=== PATIENT | female | born 1950 | race Caucasian/White ===

== ENCOUNTER 2025-06-24 22:40 | Emergency (ER) | payer MEDICARE, OTHER ==
[~2025-06-24] VITALS: Ht 162.6 cm; Wt 44.8 kg
[2025-06-25 04:00] VITALS: O2SAT 93
--- NOTE | 2025-06-25 05:23 | ED.PDOC ---
General HPI Comments A 74-YEAR-OLD FEMALE PRESENTS TO ED FOR CC OF CATHETER REPLACEMENT. PATIENT ALSO REPORTS HISTORY OF CHRONIC UTIS SHE NOTES URINE IN HER BAG HAS BEEN DARK WITH ODOR. DENIES FEVER, CHILLS, NAUSEA, VOMITING, FLANK PAIN, ABDOMINAL PAIN, CHEST PAIN OR SHORTNESS OF BREATH. REPORTS NO NAUSEA, VOMITING OR DIARRHEA. CO NTACT: LYSSA; [phone] Chief Complaint: Tube Replacement Time Seen by MD: 22:50 Reviewed notes: Nurses Notes, Medications, Allergies Allergies: Coded Allergies: Azithromycin (Verified Allergy, Unknown, 06/25/25) Sulfa Antibiotics (Verified Allergy, Unknown, 06/25/25) Home Meds Active Scripts Phenazopyridine HCl (Phenazopyridine Hydrochlo) 200 Mg Tab, 200 MG PO TID, #6 TAB Prov:OTONIEL POST 06/25/25 Ciprofloxacin Hcl (Cipro) 500 Mg Tab, 1 TAB PO BID, #20 TAB Prov:OTONIEL POST 06/25/25 Information Source: Patient Mode of Arrival: Ambulatory Severity: Mild, Moderate Inability to void: None Timing: Days Duration: Since onset, Days Prehospital treatment: None Onset: Spontaneous Symptoms: Dysuria History of: UTI Location: None Modifying factors: None associated signs and symptoms: Dysuria Past Medical History PAST MEDICAL HISTORY: UTI'S Past Medical History (Other): CHRONIC UTIS Surgical History: Denies all surgeries CHANNEL ROUGHER History: No Pertinent CHANNEL ROUGHER History Family History Family History: Reviewed,noncontributory to illness Social History Smoker: Non-Smoker Alcohol: Denies ETOH Use Drugs: Denies Drug Use Lives In: Home Constitutional: denies: chills, diaphoresis, fatigue, fever, malaise, sweats, weakness, others EENTM: denies: blurred vision, double vision, ear bleeding, ear discharge, ear drainage, ear pain, ear ringing, eye pain, eye redness, hearing loss, mouth pain, mouth swelling, nasal discharge, nose bleeding, nose congestion, nose pain, photophobia, tearing, throat pain, throat swelling, voice changes, others Respiratory: denies: cough, hemoptysis, orthopnea, SOB at rest, shortness of breath, SOB with excertion, stridor, wheezing, others Cardiovascular: denies: chest pain, dizzy spells, diaphoresis, Dyspnea on exertion, edema, irregular heart beat, left arm pain, lightheadedness, pal pitations, PND, syncope, others Gastrointestinal: denies: abdomen distended, abdominal pain, blood streaked bowels, constipated, diarrhea, dysphagia, difficulty swallowing, hematemesis, melena, nausea, poor appetite, poor fluid intake, rectal bleeding, rectal pain, vomiting, others Genitourinary: denies: abnormal vagina bleeding, burning, dyspareunia, dysuria, flank pain, frequency, hematuria, incontinence, pain, , vagina discharge, urgency, others Neurological: denies: dizziness, fainting, headache, left sided numbness, left sided weakness, numbness, paresthesia, pre-existing deficit, right sided numbness, right sided weakness, seizure, speech problems, tingling, tremors, weakness, others Musculoskeletal: denies: back pain, gout, joint pain, joint swelling, muscle pain, muscle stiffness, neck pain, others Integumetry: denies: bruises, change in color, change in hair/nails, dryness, laceration, lesions, lumps, rash, wounds, others Allergic/Immunocompromised: denies: Difficulty Healing, Frequent Infections, Hives, Itching, others Hematologic/Lymphatic: denies: anemia, blood clots, easy bleeding, easy b ruising, swollen glands, others Psychiatric: denies: anxiety, bipolar disorder, depression, hopeless, panic disorder, schizophrenia, sleepless, suicidal, others All Other Systems: Reviewed and Negative (SEE HPI) Physical Exam General Appearance: No Apparent Distress, Normal HEENT: PERRL/EOMI, Pharynx Normal Neck: Full Range of Motion, Non-Tender Respiratory: Lungs Clear, No Respiratory Distress, Normal Breath Sounds Cardiovascular: No Edema, No JVD, No Murmur, No Gallop, Normal Peripheral Pulses, Regular Rate/Rhythm Breast Exam: Deferred Gastrointestinal: No Organomegaly, Non Tender, No Pulsatile Mass, Normal Bowel Sounds, Soft Genitalia: Other (SALCEDO CATHETER CHANGE ) Pelvic: Deferred Rectal: Deferred Extremities: Normal range of motion, No pedal edema Musculoskeletal : Apperance: Normal Neurologic: Alert, No Motor Deficits, Normal Affect, Normal Mood, No Sensory Deficits Cerebellar Function: Normal Reflexes: NOT DONE Skin: Dry, Normal Color, Warm Peripheral Pulses: 2+ carotid (R), 2+ carotid (L) Lymphatic: No Adenopathy Was a procedure done? Was a procedure done?: No Differential Diagnosis Kidney stone (Female): Pyelonephritis, Urinary obstruction, Urolithiasis Urinary Problem (Female): Urinary retention, UTI, Other (SALCEDO CATHETER CHANGE ) X-Ray, Labs, Meds, VS Vital Signs Date Time Temp Pulse Resp B/P (MAP) Pulse Ox O2 Delivery O2 Flow Rate FiO2 06/25/25 06:00 79 11 145/73 (97) 93 06/25/25 04:00 93 Nasal Cannula* 2 28 06/25/25 04:00 98.5 84 19 140/71 (94) 93 98.5 06/25/25 00:32 89 19 140/64 (89) 06/24/25 22:40 98.1 96 18 140/80 98 98.1 Lab Test 06/24/25 06:15 Range/Units Urine Color Dark-yellow Yellow Urine Clarity Turbid H Clear Urine pH 6.0 5.0-9.0 Urine Specific [place] 1.018 1.001-1.035 Urine Protein 1+ H Negative Urine Ketones Negative Negative Urine Blood 2+ H Negative /uL Urine Nitrite 2+ H Negative Urine Bilirubin 1+ H Negative Urine Urobilinogen 2 H Negative mg/dL Urine Leukocyte Esterase 3+ Negative /uL Urine RBC 34 0 - 4 /hpf Urine WBC Clumps Present None Seen /hpf Urine Microscopic WBC 324 H 0-5 /HPF Urine Squamous Epithelial Cells Few <5 /hpf Urine Calcium Oxalate Crystals Few None Seen Urine Bacteria Many H None Seen /hpf Urine Mucus Few None Seen Urine Glucose Normal Normal mg/dL Current Medications Medications (Trade) Dose Ordered Sig/Gregory Route Start Time Stop Time Status Last Admin Ceftriaxone Sodium (Rocephin) 1,000 mg ONCE ONCE IM 06/25/25 06:45 06/25/25 06:46 DC 06/25/25 07:09 X-Ray, Labs, Meds, VS Comment Salcedo catheter placed without complication patient tolerated well.. Pending UA, no return in Salcedo bag patient given p.o. fluids. 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 RX: CIPRO 500MG AND PYRIDIUM 200MG Time of 1ST Reevaluation: 23:55 Reevaluation 1ST: Unchanged Time of 2ND Reevaluation: 07:40 Reevaluation 2ND: Improved Patient Education/Counseling: Diagnosis, Treatment, Need For Follow Up Family Education/Counseling: Diagnosis, Treatment, Need For Follow Up Medical Screening: No EMC Exist At This Time Assigned to Dr. LIBBY POST PA-C Change of Shift?: Yes SEPSIS Sepsis Screen Date sepsis recognized/suspect: Jun 24, 2025 Time Sepsis recognized/suspect: 2239 Recent Procedure: No On Antibiotic Therapy: No Respiratory Rate >20: No Heart Rate >90: No Temp<36 C (96.8 F) or >38.3 C: No SBP <90 or MAP <65 mmHG: No New Acute Mental Status Change: No Is the patient on CPAP, BIPAP,: Yes Physician Orders Insert/Manage Urinary Catheter QSHIFT (06/24/25 22:50) Vital Signs Date Time Temp Pulse Resp B/P (MAP) Pulse Ox O2 Delivery O2 Flow Rate FiO2 06/25/25 06:00 79 11 145/73 (97) 93 06/25/25 04:00 93 Nasal Cannula* 2 28 06/25/25 04:00 98.5 84 19 140/71 (94) 93 98.5 06/25/25 00:32 89 19 140/64 (89) 06/24/25 22:40 98.1 96 18 140/80 98 98.1 Medications Medications Dose Ordered Sig/Gregory Route Start Time Stop Time Status Last Admin Dose Admin Ceftriaxone Sodium 1,000 mg ONCE ONCE IM 06/25/25 06:45 06/25/25 06:46 DC 06/25/25 07:09 Departure 1 Departure Time of Disposition: 07:40 Impression: Primary Impression: Salcedo catheter problem Qualified Codes: T83.9XXA - Unspecified complication of genitourinary prosthetic device, implant and graft, initial encounter Additional Impressions: UTI (urinary tract infection) Qualified Codes: T83.511A - Infection and inflammatory reaction due to indwelling urethral catheter, initial encounter; N39.0 - Urinary tract infection, site not specified Urinary catheter (Salcedo) change required Disposition: 01 HOME / SELF CARE / HOMELESS Condition: Stable Additional Instructions: F/U PCP IN 2 DAYS RECHECK. IF CONDITION BECOME WORSE, RETURN TO ED [facility]. 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
[2025-06-25 06:28] LABS: Urine Protein, UAD 1+ (Negative); Urine WBC Clumps PRESENT /hpf (None Seen)
[2025-06-25] MEDS ORDERED: PHEN-922 PO (07:09)
[2025-06-25] MEDS: cefTRIAXone SOD 1,000 MG VL IM ONE (07:09)
[2025-06-25] MEDS ORDERED: CIPR-173 PO (07:09)
[2025-06-25 08:00] VITALS: BP 141/64; PULSE 81; RESP 16; TEMP 98.2; O2SAT 94
== END 2025-06-25 13:56 | disposition home or self-care (01) ==
LOC: ER 22:40 → EDBD 22:40 → ER 06-25 13:50
DX: T83.9XXA Unspecified complication of genitourinary prosthetic device, implant and graft, initial encounter (principal); N39.0 Urinary tract infection, site not specified; Z46.6 Encounter for fitting and adjustment of urinary device; Z88.2 Allergy status to sulfonamides; Z87.440 Personal history of urinary (tract) infections; Z88.1 Allergy status to other antibiotic agents; Z79.899 Other long term (current) drug therapy; Y84.8 Other medical procedures as the cause of abnormal reaction of the patient, or of later complication, without mention of misadventure at the time of the procedure; Y92.89 Other specified places as the place of occurrence of the external cause
CPT/HCPCS: 51702; 81001; 96372; 99285; A4315; J0696